=== PATIENT | male | born 1990 | race Caucasian/White ===

== ENCOUNTER 2024-03-26 18:35 | Emergency (ER) | payer MEDICARE, MEDICAID ==
[2024-03-26] MEDS: diphenhydrAMINE 50 MG/ML SDV IM ONE (19:03)
[2024-03-26 19:11] LABS: BASOPHILS ABSOLUTE AUTO 0.03 K/uL (0.00-0.20); BASOPHILS PERCENT AUTO 0.3 % (0.0-2.0); EOSINOPHILS ABSOLUTE AUTO 0.28 K/uL (0.00-0.50); EOSINOPHILS PERCENT AUTO 2.8 % (0.0-5.0); HEMATOCRIT 37.4 % (39.0-49.0); HEMOGLOBIN 10.9 g/dL (13.1-16.8); LYMPHOCYTES ABSOLUTE AUTO 3.02 K/uL (0.50-3.50); LYMPHOCYTES PERCENT AUTO 30.4 % (10.0-50.0); MEAN CORPUSCULAR HEMOGLOBIN 17.6 pg (28.2-33.3); MEAN CORPUSCULAR HGB CONC 29.1 g/dL (31.7-36.0); MEAN CORPUSCULAR VOLUME 60.2 fL (84.0-98.0); MONOCYTES ABSOLUTE AUTO 0.82 K/uL (0.00-1.00); MONOCYTES PERCENT AUTO 8.3 % (2.0-14.0); NEUTROPHILS ABSOLUTE AUTO 5.77 K/uL (1.40-7.00); NEUTROPHILS PERCENT AUTO 58.2 % (45.0-80.0); PLATELET COUNT,PLT 414 K/uL (150-350); RED BLOOD CELL COUNT 6.21 M/uL (4.33-5.41); RED CELL DISTRIBUTION WIDTH 20.7 % (11.2-14.1); WHITE BLOOD CELL COUNT,WBC 9.9 K/uL (4.0-10.2)
[2024-03-26 19:30] LABS: ALANINE AMINOTRANSFERASE,ALT 24 U/L (12-78); ALBUMIN 3.6 g/dL (3.4-5.0); ALKALINE PHOSPHATASE 79 IU/L (46-116); ANION GAP 11.8 meq/L (7-15); ASPARTATE AMNIOTRANSFERASE,AST 19 U/L (15-37); BILIRUBIN TOTAL 0.6 mg/dL (0.2-1.0); BLOOD UREA NITROGEN,BUN 8 mg/dL (7-18); CALCIUM 8.8 mg/dL (8.5-10.1); CARBON DIOXIDE,CO2 25.2 mmol/L (21.0-32.0); CHLORIDE,CL 102 mmol/L (98-107); CREATININE 0.94 mg/dL (0.51-1.17); GLUCOSE RANDOM 112 mg/dL (70-99); POTASSIUM,K 3.8 mmol/L (3.5-5.1); PROTEIN TOTAL,TP 8.2 g/dL (6.4-8.2); SODIUM,NA 139 mmol/L (136-145)
[2024-03-26 19:35] LABS: PROTHROMBIN TIME 10.4 SEC (9.0-11.1)
[2024-03-26 19:36] LABS: ESTIMATED GFR 109 mL/min (>=60)
== END 2024-03-26 20:05 | disposition home or self-care (01) ==
LOC: LL.ED 18:35
DX: T63.441A Toxic effect of venom of bees, accidental (unintentional), initial encounter (principal); D64.9 Anemia, unspecified; F41.9 Anxiety disorder, unspecified
CPT/HCPCS: 36415; 80053; 83520; 84484; 85025; 85610; 93005; 93010; 96372; 99284; 99285; J1200